=== PATIENT | female | born 1970 | race Caucasian/White ===

== ENCOUNTER 2019-03-04 21:55 | Emergency (ER) | payer SELFPAY ==
[~2019-03-04] VITALS: Ht 160 cm; Wt 62.6 kg
[~2019-03-04 21:55] MED LIST: BENZ100C PO; HYDR-3165 PO; OSEL75CA PO
--- NOTE | 2019-03-04 23:41 | PHYS DOC ---
Past History Past Medical History: Glaucoma Past Surgical History: Tubal ligation Smoking: Cigarettes, Less than 1pk/day Alcohol Use: None Drug Use: None Adult General Chief Complaint Chief Complaint: Neck Pain HPI HPI Patient is a 48-year-old female presents with neck pain after falling down approximately 4 feet worth of stairs several days ago. Increased pain with movement. No weakness or numbness or tingling. No loss of bowel or bladder control. No shortness of breath. No relief with home medicines. No radiation of the discomfort. Discomfort is moderate to severe in intensity. [] Review of Systems Review of Systems Constitutional: Denies fever or chills [] Eyes: Denies change in visual acuity, redness, or eye pain [] HENT: Denies nasal congestion or sore throat [] Respiratory: Denies cough or shortness of breath [] Cardiovascular: No chest pain or palpitations[] GI: Denies abdominal pain, nausea, vomiting, bloody stools or diarrhea [] : Denies dysuria or hematuria [] Musculoskeletal: Denies back pain, neck pain is present, see history of present illness[] Integument: Denies rash or skin lesions [] Neurologic: Denies headache, focal weakness or sensory changes [] Endocrine: Denies polyuria or polydipsia [] All other systems were reviewed and found to be within normal limits, except as documented in this note. Current Medications Current Medications Current Medications Medications (Trade) Dose Ordered Sig/Maranda Start Time Stop Time Status Last Admin Dose Admin Ketorolac Tromethamine (Toradol 15mg Vial) 15 mg 1X ONCE 03/04/19 23:45 03/04/19 23:46 Allergies Allergies Allergies Coded Allergies Type Severity Reaction Last Updated Verified No Known Drug Allergies 07/22/16 No Physical Exam Physical Exam Constitutional: Well developed, well nourished, no acute distress, non-toxic appearance. [] HENT: Normocephalic, atraumatic, bilateral external ears normal, oropharynx moist, no oral exudates, nose normal. [] Eyes: PERRLA, EOMI, conjunctiva normal, no discharge. [] Neck: Normal range of motion, tenderness to palpation lower neck, no step-off, no crepitus, supple, no stridor. [] Cardiovascular:Heart rate regular rhythm, no murmur [] Lungs & Thorax: Bilateral breath sounds clear to auscultation [] Abdomen: Bowel sounds normal, soft, no tenderness, no masses, no pulsatile masses. [] Skin: Warm, dry, no erythema, no rash. [] Back: No tenderness, no CVA tenderness. [] Extremities: No tenderness, no cyanosis, no clubbing, ROM intact, no edema. [] Neurologic: Alert and oriented X 3, normal motor function, normal sensory function, no focal deficits noted. [] Psychologic: Affect normal, judgement normal, mood normal. [] EKG EKG [] Radiology/Procedures Radiology/Procedures PROCEDURE: CT CERVICAL SPINE WO CONTRAST CT neck without contrast. HISTORY: Neck pain, fall downstairs Axial CT images were obtained through the cervical spine. Sagittal and coronal reconstructed images were reviewed. There is mild carotid artery calcification. Thyroid is homogeneous. Visualized upper lobes the lungs are clear. A spinous process fracture is not identified. A C-spine fracture is not identified. There is disc space narrowing at C6-7. There is hypertrophic spurring at C6-7. An acute fracture is not identified. Lymph nodes in the upper neck are upper normal in size. Nodes are symmetric. There is mild central disc bulging at C3-4 and C4-5. There is a right-sided disc bulge or protrusion at C5-6. IMPRESSION: 1. Degenerative disc disease at several levels. 2. Disc space narrowing and spurring at C6-7. 3. No acute C-spine fracture. [] Course & Med Decision Making Course & Med Decision Making Pertinent Labs and Imaging studies reviewed. (See chart for details) ED course: Patient arrived, was placed in bed, and tolerated exam well. She was referred to and from radiology with any Patients. She was given medicine which didn't improve her discomfort. She was informed of the imaging findings, all questions were answered. She was discharged in improved condition. Medical decision making: There is no evidence of a fracture or dislocation. No evidence of neurologic compromise. We will treat her with outpatient pain management.[] Dragon Disclaimer Dragon Disclaimer This electronic medical record was generated, in whole or in part, using a voice recognition dictation system. Departure Departure: Impression: Primary Impression: Cervical strain Disposition: 01 HOME, SELF-CARE Condition: IMPROVED Referrals: PCPADAM (PCP) Patient Instructions: Cervical Strain and Sprain with [facility] Additional Instructions: Follow-up with your regular doctor in 2 days. If you do not have regular doctor list of local clinics will be provided for you. Return to the ER if worsening pain, loss of bowel or bladder control, weakness, or any other concerns. Scripts Orphenadrine Citrate (ORPHENADRINE CITRATE) 100 Mg Tablet.er 100 MG PO BID for BACK PAIN, #20 TAB.SR Prov: DAVID HOUGH DO 03/05/19 Meloxicam (MELOXICAM) 7.5 Mg Tablet 7.5 MG PO DAILY for PAIN, #20 TAB Prov: DAVID HOUGH DO 03/05/19 Problem Qualifiers Primary Impression: Cervical strain Encounter type: initial encounter Qualified Codes: S16.1XXA - Strain of muscle, fascia and tendon at neck level, initial encounter DAVID HOUGH DO Mar 04, 2019 23:41
[2019-03-04] MEDS ORDERED: KETOROLAC 15 MG/ML VIAL. IM ONE (23:45)
--- NOTE | 2019-03-05 00:09 | RAD ---
CT neck without contrast. HISTORY: Neck pain, fall downstairs Axial CT images were obtained through the cervical spine. Sagittal and coronal reconstructed images were reviewed. There is mild carotid artery calcification. Thyroid is homogeneous. Visualized upper lobes the lungs are clear. A spinous process fracture is not identified. A C-spine fracture is not identified. There is disc space narrowing at C6-7. There is hypertrophic spurring at C6-7. An acute fracture is not identified. Lymph nodes in the upper neck are upper normal in size. Nodes are symmetric. There is mild central disc bulging at C3-4 and C4-5. There is a right-sided disc bulge or protrusion at C5-6. IMPRESSION: 1. Degenerative disc disease at several levels. 2. Disc space narrowing and spurring at C6-7. 3. No acute C-spine fracture. RS Compliance Statement: One or more of the following individualized dose reduction techniques were utilized for this examination: 1. Automated exposure control 2. Adjustment of the mA and/or kV according to patient size 3. Use of iterative reconstruction technique Electronically signed by: Osmin Lacy MD (03/05/2019 12:06 AM) [id number]
[2019-03-05 00:15] VITALS: BP 124/68
[2019-03-05] MEDS ORDERED: ORPH-16 PO (00:29)
[2019-03-05] MEDS ORDERED: MELO7.5T29 PO (00:29)
== END 2019-03-05 00:39 | disposition home or self-care (01) ==
LOC: ER 21:55
DX: S16.1XXA Strain of muscle, fascia and tendon at neck level, initial encounter (principal); F17.210 Nicotine dependence, cigarettes, uncomplicated; W10.8XXA Fall (on) (from) other stairs and steps, initial encounter; Y93.89 Activity, other specified; Y92.89 Other specified places as the place of occurrence of the external cause; Y99.8 Other external cause status
CPT/HCPCS: 72125; 96372; 99284; J1885